=== PATIENT | female | born 1980 | race Caucasian/White ===

== ENCOUNTER 2025-02-24 06:05 | Observation (INO) | payer BC ==
[2025-02-23 13:18] LABS: BASOPHILS % 0.7 % (0.0-1.0); EOSINOPHILS % 2.2 % (0.0-6.0); LYMPHOCYTES % 26.7 % (18.0-39.1); MONOCYTES % 8.0 % (4.4-11.3); NEUTROPHILS % 62.0 % (38.7-80.0); RED CELL DISTRIBUTION WIDTH 13.1 % (11.7-14.4)
[2025-02-23 13:53] LABS: EST GLOMERULAR FILTRATION RATE 111.0 ML/MIN (>=60)
[2025-02-23 14:05] LABS: INR 0.91
[~2025-02-24] VITALS: Ht 160 cm; Wt 61.7 kg
[~2025-02-24 06:05] MED LIST: ADDERALL 20 MG20 MG PO; NEURONTIN100 MG PO; NEXIUM20 MG PO; PROGESTERONE100 MG PO; THYROID NP PO; WELLBUTRIN XL300 MG PO
[2025-02-24] MEDS ORDERED: SUCCINYLCHOLINE CHLORIDE 20 MG/ML 10ML VIAL ONE (07:03)
[2025-02-24] MEDS ORDERED: ROCURONIUM BROMIDE 1 ML IV ONE ×2 (07:03→08:32)
[2025-02-24] MEDS ORDERED: MIDAZOLAM HCL 2 MG/2 ML VIAL ONE (07:03)
[2025-02-24] MEDS ORDERED: FENTANYL CITRATE/PF 100MCG/2 ML INJ ONE ×2 (07:03→08:35)
[2025-02-24] MEDS ORDERED: SEVOFLURANE INHAL SOLN 250 ML PEN BTL ONE (07:03)
[2025-02-24] MEDS ORDERED: PROPOFOL IV EMULSION 10 MG/ML 20 ML VIAL ONE (07:03)
[2025-02-24] MEDS ORDERED: LIDOCAINE HCL 2% LOCAL INJ 5 ML SDV VIAL INJ ONE (07:03)
[2025-02-24] MEDS ORDERED: FAMOTIDINE 20 MG/2 ML VIAL IV ONE (07:07)
[2025-02-24] MEDS ORDERED: DEXAMETHASONE SOD PHOS INJ 4 MG/ML SDV ONE (08:14)
[2025-02-24] MEDS ORDERED: MAGNESIUM/ALUMINUM/SIMETHICONE 30 ML UDC PO PRN (08:15)
[2025-02-24] MEDS ORDERED: ACETAMINOPHEN 325 MG TAB PO PRN (08:15)
[2025-02-24] MEDS: LACTATED RINGER'S 1,000 ML IV SCH (08:15)
[2025-02-24] MEDS ORDERED: PROMETHAZINE HCL (IM) 25 MG/ML VIAL IM PRN (08:15)
[2025-02-24] MEDS ORDERED: CARISOPRODOL 350 MG TAB PO PRN (08:15)
[2025-02-24] MEDS ORDERED: HYDROCODON-ACE1 EA12 PO (08:17)
[2025-02-24] MEDS: LACTATED RINGER'S 1,000 ML ONE (08:19)
[2025-02-24] MEDS ORDERED: ACETAMINOPHEN 1000 MG/100 ML 100 ML IV ONE (08:27)
[2025-02-24] MEDS ORDERED: SUGAMMADEX SODIUM 200 MG/2 ML VIAL IV ONE (08:36)
[2025-02-24] MEDS: PROGESTERONE MICRONIZED 100 MG PO SCH (09:00)
[2025-02-24] MEDS: THYROID NP PO SCH (09:00)
[2025-02-24] MEDS: PANTOPRAZOLE SOD 40 MG TABEC PO SCH (09:00)
[2025-02-24] MEDS: GABAPENTIN 100 MG CAP PO SCH (09:00)
[2025-02-24] MEDS: NON-FORMULARY MEDICATION (Amphet Asp/Amphet/D-Amphet (Adderall 20 Mg Tablet) 20 MG) PO SCH (09:00)
[2025-02-24] MEDS ORDERED: EYE LUBRICANT OPTH OINT 3.5GM TUBE OP ONE (09:09)
[2025-02-24] MEDS: FENTANYL CITRATE/PF 100MCG/2 ML INJ ONE (09:42)
[2025-02-24] MEDS ORDERED: ETOMIDATE 40 MG/ 20ML VIAL IV ONE (11:09)
[2025-02-24] MEDS: HYDROMORPHONE 1MG/1ML INJ ONE (11:34)
[2025-02-24] MEDS: HYDROCODONE/APAP 5MG-325MG TAB ONE (13:53)
[2025-02-24 15:02] VITALS: BP 116/72; PULSE 68; RESP 14; TEMP 97.2; O2SAT 98
[2025-02-24] MEDS: ONDANSETRON HCL INJ 2MG/ML 2ML 2 MG/ML VIAL IV PRN (15:52)
[2025-02-24] MEDS: Morphine 10mg syringe 10 MG/ML INJ IV PRN (15:52)
[2025-02-24] MEDS ORDERED: OXYCODONE/ACETAMINOPHEN 5-325 1 EACH TABLET PO PRN (16:00)
[2025-02-24 16:51] VITALS: BP 122/87; PULSE 85; RESP 19; TEMP 97.7; O2SAT 98
[2025-02-24 20:00] VITALS: BP 118/78; PULSE 76; RESP 18; TEMP 97.8; O2SAT 100
[2025-02-24] MEDS ORDERED: ZOLPIDEM TARTRATE 5 MG TAB PO PRN (21:00)
[2025-02-24] MEDS: BUPROPION HCL 150 MG TABCR PO SCH (21:03)
[2025-02-24] MEDS: GABAPENTIN 300 MG CAP PO SCH (21:04)
[2025-02-25] VITALS: BP 115/76; PULSE 84; RESP 18; TEMP 97.7; O2SAT 100
[2025-02-25 04:00] VITALS: BP 117/80; PULSE 85; RESP 18; TEMP 98.7; O2SAT 98
[2025-02-25] MEDS: OXYCODONE/ACETAMINOPHEN 5-325 1 EACH TABLET PO PRN (04:08)
[2025-02-25] MEDS: CEPACOL SORE THROAT LOZENGES PO PRN (04:14)
[2025-02-25 08:59] VITALS: BP 107/68; PULSE 83; RESP 20; TEMP 98.8; O2SAT 100
[2025-02-25 09:00] VITALS: BP 107/68; PULSE 83; RESP 20; TEMP 98.8; O2SAT 100
[2025-02-25] MEDS: Morphine 4mg INJECTION 4 MG/ML INJ IV PRN (09:55)
== END 2025-02-25 10:32 | disposition home or self-care (01) ==
LOC: OR 06:05 → PACU V 09:35 → MED/SURG 15:04
PROVIDERS: ADMIT Neurological Surgery; ATTEND Neurological Surgery
DX: M50.122 Cervical disc disorder at C5-C6 level with radiculopathy (principal); E03.9 Hypothyroidism, unspecified; K21.9 Gastro-esophageal reflux disease without esophagitis; F41.8 Other specified anxiety disorders; U07.0 Vaping-related disorder; G89.29 Other chronic pain
CPT/HCPCS: 20931; 22551; 22845; 36415; 71046; 72040; 76000; 80048; 85025; 85610; 85730; 86850; 86900; 88304; 88311; 93005; G0378 ×2; J0131; J0690 ×2; J1100; J1171; J1308; J2003; J2250; J2270 ×2; J2405; J2470; J2704; J3010; J7121; J0330